=== PATIENT | male | born 1945 | race Caucasian/White ===

== ENCOUNTER → 2024-11-07 15:30 | Outpatient (BNVA) | payer MEDICARE, SELFPAY | PROVIDERS: Visit Provider Family Medicine | DX: E55.9 Vitamin D deficiency, unspecified (principal); I10 Essential (primary) hypertension; C61 Malignant neoplasm of prostate | CPT/HCPCS: 80053; 80061; 82306; 85025 ==

== ENCOUNTER → 2025-02-28 08:59 | Outpatient (BNVA) | payer MEDICARE, SELFPAY | PROVIDERS: PCP Family Medicine; Visit Provider Family Medicine | DX: Z12.5 Encounter for screening for malignant neoplasm of prostate (principal); I12.9 Hypertensive chronic kidney disease with stage 1 through stage 4 chronic kidney disease, or unspecified chronic kidney disease; N18.9 Chronic kidney disease, unspecified; R73.9 Hyperglycemia, unspecified | CPT/HCPCS: 80048; 83036; G0103 ==

== ENCOUNTER → 2025-03-04 13:30 | Outpatient (BNVA) | payer MEDICARE, SELFPAY | PROVIDERS: PCP Family Medicine; Visit Provider Family Medicine | DX: D75.89 Other specified diseases of blood and blood-forming organs (principal) | CPT/HCPCS: 82607; 82746 ==

== ENCOUNTER → 2025-04-05 08:30 | Outpatient (BNVA) | payer MEDICARE, SELFPAY | PROVIDERS: PCP Family Medicine; Visit Provider Family Medicine | DX: C61 Malignant neoplasm of prostate (principal) | CPT/HCPCS: 84153 ==

== ENCOUNTER → 2025-04-22 09:35 | Outpatient (BNVA) | payer MEDICARE, SELFPAY | PROVIDERS: PCP Family Medicine; Visit Provider Family Medicine | DX: E87.6 Hypokalemia (principal); D75.89 Other specified diseases of blood and blood-forming organs | CPT/HCPCS: 80048; 85025 ==

== ENCOUNTER → 2025-04-23 16:28 | Outpatient (BNVA) | payer MEDICARE, SELFPAY | PROVIDERS: PCP Family Medicine; Visit Provider Family Medicine | DX: E87.6 Hypokalemia (principal); D75.89 Other specified diseases of blood and blood-forming organs | CPT/HCPCS: 80503 ==